=== PATIENT | male | born 1955 | race Caucasian/White ===

== ENCOUNTER 2021-10-06 21:48 | Outpatient (CLI) | payer MEDICARE, OTHER | END 2021-10-06 21:49 | disposition EMS.NT | LOC: EMS 21:48 | DX: R11.2 Nausea with vomiting, unspecified (principal); R10.9 Unspecified abdominal pain; R14.0 Abdominal distension (gaseous) ==

== ENCOUNTER 2021-10-06 22:59 | Emergency (ER) | payer MEDICARE, OTHER ==
[2021-10-06] MEDS ORDERED: PROMETHAZINE INJ 25 MG in SODIUM CHLORIDE 0.9% 50 ML IV STA (23:07)
[2021-10-06] MEDS ORDERED: SODIUM CHLORIDE 0.9% 1,000 ML IV STA (23:07)
--- NOTE | 2021-10-06 23:10 | ED Physician Documentation ---
PD HPI NVD - Stated complaint Stated Complaint: SOA, ABD CRAMPS, NAUSEA - Chief complaint Chief Complaint: Resp - History obtained from History obtained from: Patient - History of Present Illness Timing - onset: How many hours ago (6) Timing - duration: Hours (6) Timing - details: Abrupt onset Pain level max: 6 Pain level now: 5 Associated symptoms: Abdominal pain. No: Fever, Chest pain, Hematemesis, Melena, Hematochezia, Dizzy, Near syncope / syncope, Loss of appetite Contributing factors: No: Sick contact, Recent antibiotics, Alcohol use, Anticoagulated, Diabetes - Additonal information Additional information: Patient is a 66-year-old male he states that he was eating Oreos earlier today when he began to develop abdominal cramping and pain. He states he has had nausea and vomiting since that time. The abdominal pain is diffuse. Nothing makes it better or worse. EMS came and evaluated the patient. The patient elected to have his drive him to the hospital. No recent antibiotics. No alcohol use. Not anticoagulated. No diabetes. Nothing makes it better or worse. Has not had similar symptoms previously. No chest pain. He states that he feels short of air when vomiting. Review of Systems Ten Systems: 10 systems reviewed and negative Constitutional: denies: Fever, Chills Throat: denies: Sore throat Cardiac: denies: Chest pain / pressure, Palpitations Respiratory: denies: Cough, Wheezing GI: reports: Abdominal Pain (Diffuse, crampy), Nausea, Vomiting. denies: Diarrhea, Hematemesis, Bloody / black stool Skin: denies: Rash Musculoskeletal: denies: Neck pain, Back pain Neurologic: denies: Headache PD PAST MEDICAL HISTORY - Past Medical History Past Medical History: Yes HEENT: Glaucoma - Present Medications Home Medications: Ambulatory Orders Medication Instructions Recorded Confirmed Timolol Maleate/Latanoprost/Pf 1 drops EACHEYE DAILY 10/06/21 10/06/21 [Timolol 0.5%-Latanopros 0.005%] Ondansetron Odt [Zofran] 4 mg TL Q6H PRN #10 tablet 10/07/21 Promethazine [Phenergan] 25 mg PO Q6H PRN #10 tablet 10/07/21 - Allergies Allergies/Adverse Reactions: Allergies Allergy/AdvReac Type Severity Reaction Status Date / Time No Known Drug Allergies Allergy Verified 10/06/21 23:13 - Living Situation Living Situation: reports: With family Living Arrangement: reports: At home - Social History Does the pt smoke?: No Does the pt drink ETOH?: No Does the pt have substance abuse?: No - Family History Family history: reports: Non contributory PD ED PE NORMAL - Vitals Vital signs reviewed: Yes - General General: Alert and oriented X 3, No acute distress, Well developed/nourished - HEENT HEENT: PERRL, Moist mucous membranes, Pharynx benign - Neck Neck: Supple, no meningeal sign - Cardiac Cardiac: RRR, Strong equal pulses - Respiratory Respiratory: No respiratory distress, Clear bilaterally - Abdomen Abdomen: Soft, Non tender, Non distended - Derm Derm: Warm and dry, No rash - Extremities Extremities: No edema, No calf tenderness / cord - Neuro Neuro: Alert and oriented X 3 - Psych Psych: Normal mood, Normal affect Results - Vitals Vitals: Vital Signs - 24 hr 10/06/21 10/06/21 23:08 23:42 Temperature 36.4 C L Heart Rate 88 72 Respiratory 17 20 Rate Blood Pressure 156/90 H 116/77 O2 Saturation 98 94 Oxygen O2 Source Room air - Labs Labs: Laboratory Tests 10/06/21 10/06/21 23:10 23:10 WBC 15.9 H RBC 4.78 Hgb 15.1 Hct 42.8 MCV 89.5 MCH 31.6 H MCHC 35.3 RDW 12.5 Plt Count 323 MPV 9.7 Neut # (Auto) 12.9 H Lymph # (Auto) 1.9 Hall # (Auto) 0.8 Eos # (Auto) 0.2 Baso # (Auto) 0.1 Absolute Nucleated RBC 0.00 Nucleated RBC % 0.0 Sodium 134 L Potassium 4.4 Chloride 99 L Carbon Dioxide 23 Anion Gap 12.0 BUN 18 Creatinine 1.0 Estimated GFR (MDRD) 75 L Glucose 177 H Calcium 9.4 Total Bilirubin 0.9 AST 21 ALT 22 Alkaline Phosphatase 58 Total Protein 8.1 Albumin 4.5 Globulin 3.6 Albumin/Globulin Ratio 1.3 Lipase 33 - Rads (name of study) CT abdomen pelvis Radiology: Final report received, EMP read contemporaneously, See rad report PD MEDICAL DECISION MAKING - ED course Complexity details: reviewed results, re-evaluated patient, considered differential, d/w patient ED course: Patient did not improve much with Phenergan and Zofran but did improve significantly with droperidol. CT scan performed and does not show any acute abnormalities. Abdomen is soft, nontender nondistended on serial exam. Feels much better and requesting to go home at this time. We will send the patient home with Zofran and prescribe antiemetics for home. Likely a viral gastroenteritis. Patient counseled regarding signs and symptoms for which I believe and urgent re-evaluation would be necessary. Patient with good understanding of and agreement to plan and is comfortable going home at this time This document was made in part using voice recognition software. While efforts are made to proofread this document, sound alike and grammatical errors may occur. IMPRESSION: 1. No acute abdominal or pelvic abnormality. 2. Diverticulosis without evidence of diverticulitis. 3. Cholelithiasis without evidence of acute cholecystitis. Departure - Departure Disposition: Home, Self Care Clinical Impression: Vomiting Qualifiers: Vomiting type: unspecified Nausea presence: with nausea Qualified Code(s): R11.2 - Nausea with vomiting, unspecified Condition: Good Instructions: ED Nausea Vomiting Follow-Up: JAMIE SOSA DO [Primary Care Provider] - As Needed Prescriptions: Promethazine [Phenergan] 25 mg PO Q6H PRN #10 tablet PRN Reason: Nausea / Vomiting Ondansetron Odt [Zofran] 4 mg TL Q6H PRN #10 tablet PRN Reason: Nausea / Vomiting Comments: Your prescriptions were sent to [facility]. Go home and rest tonight. Usually the vomiting will resolve within 6 to 12 hours. Drink plenty of fluids. Return if you worsen. You may develop diarrhea after the vomiting, this could last for 3 to [address] scan of your abdomen pelvis does not show any acute abnormalities.
[2021-10-06 23:17] LABS: BASOPHILS # (AUTO) 0.1 10^3/uL (0.0-0.1); BASOPHILS % (AUTO) 0.4 %; EOSINOPHILS # (AUTO) 0.2 10^3/uL (0.0-0.7); HCT - HEMATOCRIT 42.8 % (42.0-52.0); HGB - HEMOGLOBIN 15.1 g/dL (14.0-18.0); LYMPHOCYTES # (AUTO) 1.9 10^3/uL (1.5-3.5); LYMPHOCYTES % (AUTO) 11.7 %; MEAN CORPUSCULAR HEMOGLOBIN 31.6 pg (27.0-31.0); MEAN CORPUSCULAR HGB CONC 35.3 g/dL (32.0-36.0); MEAN CORPUSCULAR VOLUME 89.5 fL (80.0-94.0); MEAN PLATELET VOLUME 9.7 fL (7.4-11.4); MONOCYTES # (AUTO) 0.8 10^3/uL (0.0-1.0); MONOCYTES % (AUTO) 5.2 %; NEUTROPHILS # (AUTO) 12.9 10^3/uL (1.5-6.6); NEUTROPHILS % (AUTO) 81.4 %; PLT - PLATELET COUNT 323 10^3/uL (130-450); RED BLOOD COUNT 4.78 10^6/uL (4.70-6.10); RED CELL DISTRIBUTION WIDTH 12.5 % (12.0-15.0); WHITE BLOOD COUNT 15.9 x10^3/uL (4.8-10.8)
[2021-10-06] MEDS ORDERED: PROMETHAZINE 25 MG/1 ML VIAL ONE (23:22)
[2021-10-06 23:30] LABS: ALBUMIN 4.5 g/dL (3.2-5.5); ALBUMIN/GLOBULIN RATIO 1.3 (1.0-2.2); BILIRUBIN,TOTAL 0.9 mg/dL (0.2-1.0); CALCIUM 9.4 mg/dL (8.5-10.3); POTASSIUM 4.4 mmol/L (3.5-5.0); TOTAL PROTEIN 8.1 g/dL (6.7-8.2)
[2021-10-06] MEDS ORDERED: MORPHINE 2 MG/ML CARPUJECT IVP STA (23:39)
[2021-10-06] MEDS ORDERED: ONDANSETRON 4 MG/2 ML VIAL IVP STA (23:40)
[2021-10-06] MEDS ORDERED: IOVERSOL 320 100 ML VIAL IVP ONE (23:55)
[2021-10-07] MEDS ORDERED: DROPERIDOL 5 MG/2 ML VIAL IVP STA (00:11)
[2021-10-07] MEDS ORDERED: IOVERSOL 320 100 ML VIAL IVP ONE (00:14)
--- NOTE | 2021-10-07 00:23 | CT Report ---
PROCEDURE: Abdomen/Pelvis W INDICATIONS: diffuse abd pain, vomiting TECHNIQUE: After the administration of contrast, 5 mm thick sections acquired from the diaphragms to the sym physis. 5 mm thick coronal and sagittal reformats were acquired. For radiation dose reduction, the following was used: automated exposure control, adjustment of mA and/or kV according to patient size . COMPARISON: None. FINDINGS: Image quality: Excellent. ABDOMEN: Lung bases: Lung bases are clear. Heart size is normal. Solid organs: Liver and spleen are normal in size and enhancement. Gallbladder the gallbladder is d istended, however there is no wall thickening or pericholecystic fluid. Dependent hyperdensities are consistent with gallstones. Biliary system is non dilated. Pancreas enhances normally. No adrenal nodules. Kidneys demonstrate normal size and enhancement, without hydronephrosis. Peritoneum and bowel: Bowel loops demonstrate normal wall thickness and caliber. No free fluid or a ir. There is diverticulosis without evidence of diverticulitis. Nodes and vessels: No retroperitoneal or mesenteric adenopathy by size criteria. Aorta and inferior vena cava are normal in size. Miscellaneous: No ventral hernias. PELVIS: Genitourinary: Bladder wall thickness is normal. Miscellaneous: No inguinal hernias or adenopathy. Bones: No suspicious bony lesions. No vertebral body compression fractures. Degenerative disc dise ase at L5-S1. IMPRESSION: 1. No acute abdominal or pelvic abnormality. 2. Diverticulosis without evidence of diverticulitis. 3. Cholelithiasis without evidence of acute cholecystitis. Reviewed by: Clint Nugent on 10/07/2021 12:22 AM [facility] Approved by: Clint Nugent on 10/07/2021 12:22 AM [facility] Station ID: [id number]
[2021-10-07] MEDS ORDERED: ONDANSETRON ODT 4 MG Prepack 2 TL PRN (00:56)
[2021-10-07 01:08] VITALS: BP 156/75
== END 2021-10-07 01:08 | disposition home or self-care (01) ==
LOC: ED 22:59
DX: R11.2 Nausea with vomiting, unspecified (principal)
CPT/HCPCS: 36415; 74177; 80053; 83690; 85025; 96365; 96375; 99284; J7040; Q9967

== ENCOUNTER 2021-11-15 08:00 | Outpatient (CLI) | payer OTHER, MEDICARE ==
[2021-11-15 18:08] LABS: BASOPHILS % (AUTO) 0.2 %; EOSINOPHILS % (AUTO) 0.2 %; HCT - HEMATOCRIT 41.9 % (42.0-52.0); HGB - HEMOGLOBIN 14.4 g/dL (14.0-18.0); LYMPHOCYTES # (AUTO) 0.9 10^3/uL (1.5-3.5); MEAN CORPUSCULAR HEMOGLOBIN 30.9 pg (27.0-31.0); MEAN CORPUSCULAR HGB CONC 34.4 g/dL (32.0-36.0); MEAN CORPUSCULAR VOLUME 89.9 fL (80.0-94.0); MEAN PLATELET VOLUME 10.1 fL (7.4-11.4); MONOCYTES # (AUTO) 0.8 10^3/uL (0.0-1.0); NEUTROPHILS # (AUTO) 6.8 10^3/uL (1.5-6.6); NEUTROPHILS % (AUTO) 80.1 %; PLT - PLATELET COUNT 248 10^3/uL (130-450); RED BLOOD COUNT 4.66 10^6/uL (4.70-6.10); RED CELL DISTRIBUTION WIDTH 13.6 % (12.0-15.0); WHITE BLOOD COUNT 8.5 x10^3/uL (4.8-10.8)
[2021-11-15 18:21] LABS: ALBUMIN 3.8 g/dL (3.2-5.5); ALBUMIN/GLOBULIN RATIO 0.9 (1.0-2.2); BILIRUBIN,TOTAL 2.7 mg/dL (0.2-1.0); CALCIUM 9.2 mg/dL (8.5-10.3); CREATININE 0.8 mg/dL (0.6-1.2); POTASSIUM 3.6 mmol/L (3.5-5.0); TOTAL PROTEIN 7.9 g/dL (6.7-8.2)
== END 2021-11-15 23:59 ==
LOC: LAB.N 08:00
PROVIDERS: ATTEND Nurse Practitioner
DX: R11.10 Vomiting, unspecified (principal)
CPT/HCPCS: 36415; 80053; 82150; 83690; 85025

== ENCOUNTER 2022-01-09 11:46 | Day surgery (SDC) | payer OTHER, MEDICARE ==
[~2022-01-09 11:46] MED LIST: BUPIVACAINE 0.25% PF 10 ML VIAL ONE
[2022-01-09] MEDS ORDERED: LACTATED RINGERS 1,000 ML IV ONE ×3 (12:36→16:38)
--- NOTE | 2022-01-09 13:03 | ANESTHESIA ---
Pre-Anesthesia VS, & Labs - Diagnosis chronic cholecystitis - Procedure laparoscopic cholecystectomy Vital Signs: Temp Pulse Resp BP Pulse Ox 37.1 C 55 L 12 122/74 98 01/09/22 12:10 01/09/22 12:10 01/09/22 12:10 01/09/22 12:10 01/09/22 12:10 Height: 6 ft 1 in Weight (kg): 95 kg Body Mass Index: 27.6 BMI Classification: Overweight - NPO >8 hours - Lab Results Lab results reviewed: Yes Home Medications and Allergies Home Medications: Ambulatory Orders Ascorbic Acid [Vitamin C] 1,000 mg PO DAILY 01/04/22 Cholecalciferol [Vitamin D3] 25 mcg PO DAILY 01/04/22 Latanoprost/Pf [Latanoprost 0.005% Eye Drop] 1 drops OP DAILY 01/04/22 Timolol 0.5% Ophth Drops [Timoptic 0.5% Ophth Drops] 1 drops OPTH BID 01/04/22 Vitamin B Complex 1 each PO DAILY 01/04/22 predniSONE [Deltasone] 5 mg PO DAILY 01/04/22 Ascorbic Acid [Vitamin C] 1,000 mg PO DAILY 01/04/22 Cholecalciferol [Vitamin D3] 25 mcg PO DAILY 01/04/22 Latanoprost/Pf [Latanoprost 0.005% Eye Drop] 1 drops OP DAILY 01/04/22 Timolol 0.5% Ophth Drops [Timoptic 0.5% Ophth Drops] 1 drops OPTH BID 01/04/22 Vitamin B Complex 1 each PO DAILY 01/04/22 predniSONE [Deltasone] 5 mg PO DAILY 01/04/22 Allergies/Adverse Reactions: Allergies Allergy/AdvReac Type Severity Reaction Status Date / Time No Known Drug Allergies Allergy Verified 10/06/21 23:13 Anes History & Medical History - Anesthetic History Anesthesia Complications: reports: No previous complications Family history of Anesthesia Complications: Denies Family history of Malignant Hyperthermia: Denies - Medical History Cardiovascular: reports: None Pulmonary: reports: Sleep apnea, CPAP use Gastrointestinal: reports: GERD, Ulcers Urinary: reports: None Musculoskeletal: reports: Rheumatoid arthritis Skin: reports: Eczema, Rosacea, Other Smoking Status: Never smoker - Surgical History General: reports: Colonoscopy, Other Exam General: Alert, Oriented x3, Cooperative, No acute distress Dental: WNL Mouth Openin Fingerbreadth Neck Mobility: Normal Mallampati classification: II Plan Anesthesia Type: General Consent for Procedure(s) Verified and Reviewed: Yes Code Status: Attempt Resuscitation ASA classification: 2-Mild systemic disease Is this case an emergency?: No
[2022-01-09] MEDS ORDERED: ONDANSETRON 4 MG/2 ML VIAL ONE (13:09)
[2022-01-09] MEDS ORDERED: KETOROLAC 30 MG/ML VIAL ONE (13:09)
[2022-01-09] MEDS ORDERED: fentaNYL 100 MCG/2 ML VIAL ONE (13:09)
[2022-01-09] MEDS ORDERED: ACETAMINOPHEN 1,000 MG/100 ML 100 ML IV ONE (13:09)
[2022-01-09] MEDS ORDERED: PROPOFOL 200 MG/20 ML VIAL IVP ONE (13:09)
[2022-01-09] MEDS ORDERED: LIDOCAINE-MPF 2% 5 ML VIAL ONE (13:09)
[2022-01-09] MEDS ORDERED: DEXAMETHASONE 4 MG/ML VIAL ONE (13:09)
[2022-01-09] MEDS ORDERED: BUPIVACAINE 0.25% PF 10 ML VIAL SUBQ ONE ×2 (13:58→16:02)
[2022-01-09] MEDS ORDERED: SUGAMMADEX 200 MG/2 ML VIAL IVP ONE (14:09)
[2022-01-09] MEDS ORDERED: ROCURONIUM 50 MG/5 ML VIAL ONE (14:13)
[2022-01-09] MEDS ORDERED: HYDROmorphone 0.5 MG/0.5 ML SYRINGE IVP PRN ×2 (16:24)
[2022-01-09] MEDS ORDERED: NALOXONE 0.4 MG/ML VIAL IVP PRN (16:24)
[2022-01-09] MEDS ORDERED: ATROPINE ABBOJECT 1 MG/10 ML SYRINGE IVP PRN (16:24)
[2022-01-09] MEDS ORDERED: fentaNYL 100 MCG/2 ML VIAL IVP PRN (16:24)
[2022-01-09] MEDS ORDERED: MORPHINE 2 MG/ML CARPUJECT IVP PRN (16:24)
[2022-01-09] MEDS ORDERED: ePHEDrine 50 MG/ML VIAL IVP PRN (16:24)
[2022-01-09] MEDS ORDERED: METOCLOPRAMIDE 10 MG/2 ML VIAL IVP PRN (16:24)
[2022-01-09] MEDS ORDERED: ONDANSETRON 4 MG/2 ML VIAL IVP PRN ×2 (16:24)
[2022-01-09] MEDS ORDERED: HYDROmorphone 0.5 MG/0.5 ML SYRINGE ONE (16:35)
[2022-01-09] MEDS ORDERED: KETOROLAC 15 MG/ML VIAL IVP PRN (16:39)
[2022-01-09] MEDS ORDERED: HYDROmorphone 1 MG/ML CARPUJECT ONE (16:45)
[2022-01-09] MEDS ORDERED: KETOROLAC 15 MG/ML VIAL ONE (16:45)
--- NOTE | 2022-01-09 16:53 | ANESTHESIA POST OP EVALUATION ---
Anesthesia Post Eval - Post Anesthesia Eval Vitals: Last Vital Signs Temp 36.8 C 01/09/22 16:37 Pulse 70 01/09/22 16:47 Resp 12 01/09/22 16:47 BP 145/94 H 01/09/22 16:47 Pulse Ox 95 01/09/22 16:47 CV Function Including HR & BP: Stable Pain Control: Satisfactory Nausea & Vomiting: Negative Mental Status: Baseline Respiratory Status: Airway Patent Hydration Status: Satisfactory Anesthesia Complications: None
[2022-01-09] MEDS ORDERED: LACTATED RINGERS 1,000 ML IV SCH (17:00)
[2022-01-09] MEDS: HYDROcod/ACETAM 5/325 MG TABLET PO PRN (20:03)
[2022-01-10] MEDS: HYDROcod/ACETAM 5/325 MG TABLET PO PRN ×3 (00:04→09:53)
[2022-01-10 07:18] VITALS: BP 105/53
--- NOTE | 2022-01-10 09:06 | PHARMACY PROGRESS NOTE ---
- Best Possible Medication History Admit Date and Time: Processed by: Nursing Medication History completed: Yes Patient Interview: Completed As the person ultimately responsible for medication therapy, providers are able to order a medication from an existing home medication list in [facility] via the "Reconcile Routine" prior to Confirmation of that medication by client support administrator. Such practice is discouraged except when the physician, in their clinical judgment, deems that a medical need exists for a medication without regard to previous use.
--- NOTE | 2022-01-10 10:27 | OPERATIVE REPORT ---
Operative Report - General Procedure Date: 01/09/22 Planned Procedure: lap suma Pre-Op Diagnosis: chronic cholecystitis and hx choledocholithiasis Procedure Performed: lap suma extra degree difficulty Post Op Diagnosis: chronic cholecystitis - Procedure Note Anesthesia Technique: General ET tube, Local Pathology: gallbladder Estimated Blood Loss (mL): 100 Drain/Tube Type: Dale Rocha drain, Other Indications: as above Findings: contracted gallbladder adherent to common bile duct and hepatic artery purulent fluid within the gallbladder Complications: none - Other Other Information/Narrative: The gallbladder was encased in omentum. The patient was properly identified, brought to the operating room and placed in supine position. Sequential compression devices were placed. General endotracheal anesthesia was induced. The patient was prepped and draped in a sterile fashion and given preoperative antibiotics. Local anesthetic was given to incision areas. An incision was made in the periumbilical area. Dissection proceeded down to fascia. The fascia was incised lifted upwards and abdomen entered with a Veress needle. CO2 was insufflated to a pressure of 15. An 11 mm trocar followed by a 30 degree scope was placed. There was no evidence of injury from Veress needle or trocar placement. Under direct vision 2 5 mm trochars were placed in the right upper quadrant and an 11 mm trocar was placed in the epigastrium. The gallbladder was encased in omentum. On peeling the omentum off of the gallbladder the gallbladder ruptured. The body of the gallbladder was retracted anterior. The gallbladder was contracted and adherent to the common bile duct as well as hepatic artery. 1 and half hours was taken to carefully separate the gallbladder from the common bile duct and hepatic artery. There is no apparent injury. The cystic duct and cystic artery were both divided close to the gallbladder. He had significant thickening all tissue that duct was tied with a 2-0 silk and then clipped. Artery was clipped. The gallbladder and 2 more times slightly proximal. They are sharply divided. Lateral attachments were partially taken down further mobilizing the gallbladder more anterior and away from the duodenum. The infundibulum of the gallbladder was then retracted right lateral and caudad. With minimal use of cautery a large bare cystic plate area or window was carefully created. The cystic duct was inspected from right lateral and left lateral positions. The gallbladder was mobilized off from the bed of the liver with hook cautery. The gallbladder was placed in Endo Catch bag and brought out through the epigastric trocar site. Hemostasis was assured. Surgicel was placed at the liver bed area. #10 flat Dale-Rocha drain was placed and brought out through the right lateral trocar site. Secured with a 3- 0 nylon. Trochars were removed under direct vision. Fascia at the larger trocar sites was closed with [id number] are running 0 Vicryl suture. Subcutaneous tissue was irrigated and skin closed with interrupted 4-0 Monocryl. Dressings were applied. Patient tolerated the procedure well was awakened and brought to recovery in good condition.
== END 2022-01-10 10:40 | disposition home or self-care (01) ==
LOC: SDS 11:46 → MS2 16:50 → SDS 01-10 10:40
PROVIDERS: ATTEND Surgery
PROC: 0FT44ZZ Resection of Gallbladder, Percutaneous Endoscopic Approach (ICD-10-PCS; principal; 2022-01-09 13:15)
DX: K80.12 Calculus of gallbladder with acute and chronic cholecystitis without obstruction (principal); G47.33 Obstructive sleep apnea (adult) (pediatric); K21.9 Gastro-esophageal reflux disease without esophagitis
CPT/HCPCS: 47562; A9270; J0131; J1170; J7120

== ENCOUNTER 2022-02-05 19:57 | Inpatient (IN) | payer OTHER, MEDICARE ==
[2022-02-05] MEDS ORDERED: ONDANSETRON 4 MG/2 ML VIAL IVP STA (20:14)
[2022-02-05] MEDS ORDERED: SODIUM CHLORIDE 0.9% 1,000 ML IV STA (20:14)
--- NOTE | 2022-02-05 20:15 | ED Physician Documentation ---
PD HPI ABD PAIN - Stated complaint Stated Complaint: ABD PX - Chief complaint Chief Complaint: Abd Pain - History obtained from History obtained from: Patient - Additional information Additional information: 66-year-old gentleman with history of polymyalgia rheumatica currently on 5 mg of prednisone a day, otherwise fairly healthy. He started having trouble with gallstones a few months ago and subsequently developed choledocholithiasis. He had a ERCP with biliary stenting done in [place] and still has a stent in place but had a laparoscopic cholecystectomy about 4 weeks ago. About 2 days a go started develop sweats and chills as well as nausea and since then has developed progressive diffuse abdominal pain and vomiting. Bowel movements have been reportedly normal including a bowel movement this morning but he notes no flatus since this morning. His vomiting is terrible. Pain is not too bad though. He denies fevers or chills. Review of Systems Ten Systems: 10 systems reviewed and negative Constitutional: denies: Fever, Chills Nose: reports: Reviewed and negative Respiratory: denies: Dyspnea, Cough GI: reports: Abdominal Pain, Nausea, Vomiting. denies: Diarrhea PD PAST MEDICAL HISTORY - Past Medical History Cardiovascular: None Respiratory: Sleep apnea, CPAP use GI: GERD, Ulcers : None HEENT: Chronic vision loss, Glaucoma, Chronic hearing loss Psych: None Musculoskeletal: Rheumatoid arthritis Derm: Eczema, Rosacea, Other - Past Surgical History Past Surgical History: Yes General: Colonoscopy, Other - Present Medications Home Medications: Ambulatory Orders Medication Instructions Recorded Confirmed Ascorbic Acid [Vitamin C] 1,000 mg PO DAILY 01/04/22 01/04/22 Cholecalciferol [Vitamin D3] 25 mcg PO DAILY 01/04/22 01/04/22 Latanoprost/Pf [Latanoprost 0.005% 1 drops OP DAILY 01/04/22 01/09/22 Eye Drop] Timolol 0.5% Ophth Drops [Timoptic 1 drops OPTH BID 01/04/22 01/09/22 0.5% Ophth Drops] Vitamin B Complex 1 each PO DAILY 01/04/22 01/04/22 predniSONE [Deltasone] 5 mg PO DAILY 01/04/22 01/09/22 HYDROcod/ACETAM 5/325 [Line [place] 5/325] 1 each PO Q6H PRN #30 tablet 01/09/22 Ketorolac Inj (15Mg) [Toradol Inj 15 mg IVP ONCE #1 ml 01/09/22 (15Mg)] Ondansetron Odt [Zofran Odt] 4 mg PO Q6H PRN #15 tablet 01/09/22 - Allergies Allergies/Adverse Reactions: Allergies Allergy/AdvReac Type Severity Reaction Status Date / Time No Known Drug Allergies Allergy Verified 02/05/22 20:06 - Social History Does the pt smoke?: No Smoking Status: Never smoker Does the pt drink ETOH?: No Does the pt have substance abuse?: No - Immunizations Immunizations are current?: Yes - POLST Patient has POLST: No PD ED PE NORMAL - Vitals Vital signs reviewed: Yes - General General: Alert and oriented X 3, No acute distress - HEENT HEENT: PERRL, EOMI - Neck Neck: Supple, no meningeal sign, No bony TTP - Cardiac Cardiac: RRR, No murmur - Respiratory Respiratory: No respiratory distress, Clear bilaterally - Abdomen Abdomen: Other (Bowel tones are absent. He has mild diffuse tenderness especially in the epigastrium and right upper quadrant.) - Back Back: No CVA TTP, No spinal TTP - Derm Derm: Normal color, Warm and dry - Neuro Neuro: Alert and oriented X 3, Normal speech Results - Vitals Vitals: Vital Signs - 24 hr 02/05/22 20:00 Temperature 36.3 C L Heart Rate 76 Respiratory 18 Rate Blood Pressure 145/78 H O2 Saturation 98 Oxygen O2 Source Room air - Labs Labs: Laboratory Tests 02/05/22 02/05/22 20:22 20:22 WBC 13.2 H RBC 4.69 L Hgb 14.6 Hct 43.0 MCV 91.7 MCH 31.1 H MCHC 34.0 RDW 12.9 Plt Count 283 MPV 9.5 Neut # (Auto) 11.2 H Lymph # (Auto) 1.0 L [place] # (Auto) 0.9 Eos # (Auto) 0.0 Baso # (Auto) 0.0 Absolute Nucleated RBC 0.00 Nucleated RBC % 0.0 Sodium 139 Potassium 4.2 Chloride 97 L Carbon Dioxide 28 Anion Gap 14.0 H BUN 18 Creatinine 1.1 Estimated GFR (MDRD) 67 L Glucose 134 H Calcium 9.8 Total Bilirubin 1.6 H AST 15 ALT 20 Alkaline Phosphatase 62 Total Protein 8.7 H Albumin 4.1 Globulin 4.6 H Albumin/Globulin Ratio 0.9 L Lipase 28 PD MEDICAL DECISION MAKING - ED course ED course: 66-year-old gentleman who is about 4 weeks out from laparoscopic cholecystectomy with a ERCP biliary stent in place. He presents with 2 days of generalized symptoms with worsening abdominal pain although declines pain medication and prominent vomiting. On examination he does have some tenderness in the right upper quadrant and diffusely. Work-up here demonstrates a elevated white cell count at 13,200, elevated bilirubin at 1.6, otherwise fairly unremarkable labs. CT imaging done without contrast due to significant and severe contrast shortage in this [place] demonstrates a loculated fluid collection in the gallbladder fossa concerning for abscess. Ultrasound also ordered and formal read pending at shift change. He was feeling better after Reglan, noting he did not have a much of response to Zofran. Given the above findings he will need further evaluation and treatment including surgical consultation, potential IR guided drainage of the fluid collection. Every hospital in [facility], including ours, is currently at capacity. We do expect discharges tomorrow. There is no general surgeon currently on- call. Plan at shift change is to obtain blood cultures and start scheduled Zosyn pending surgical consultation and perhaps IR guided drainage tomorrow. Patient agreeable and amenable with plan. Departure - Departure Clinical Impression: Intra-abdominal abscess Condition: Stable
[2022-02-05 20:31] LABS: BASOPHILS % (AUTO) 0.2 %; EOSINOPHILS % (AUTO) 0.1 %; HGB - HEMOGLOBIN 14.6 g/dL (14.0-18.0); LYMPHOCYTES % (AUTO) 7.5 %; MEAN CORPUSCULAR HEMOGLOBIN 31.1 pg (27.0-31.0); MEAN CORPUSCULAR VOLUME 91.7 fL (80.0-94.0); MEAN PLATELET VOLUME 9.5 fL (7.4-11.4); MONOCYTES # (AUTO) 0.9 10^3/uL (0.0-1.0); MONOCYTES % (AUTO) 6.8 %; NEUTROPHILS # (AUTO) 11.2 10^3/uL (1.5-6.6); PLT - PLATELET COUNT 283 10^3/uL (130-450); RED BLOOD COUNT 4.69 10^6/uL (4.70-6.10); RED CELL DISTRIBUTION WIDTH 12.9 % (12.0-15.0); WHITE BLOOD COUNT 13.2 x10^3/uL (4.8-10.8)
[2022-02-05 20:45] LABS: ALBUMIN 4.1 g/dL (3.2-5.5); ALBUMIN/GLOBULIN RATIO 0.9 (1.0-2.2); BILIRUBIN,TOTAL 1.6 mg/dL (0.2-1.0); CALCIUM 9.8 mg/dL (8.5-10.3); CREATININE 1.1 mg/dL (0.6-1.2); POTASSIUM 4.2 mmol/L (3.5-5.0); TOTAL PROTEIN 8.7 g/dL (6.7-8.2)
[2022-02-05] MEDS ORDERED: METOCLOPRAMIDE 10 MG/2 ML VIAL IVP STA (21:29)
--- NOTE | 2022-02-05 21:45 | CT Report ---
PROCEDURE: Abdomen/Pelvis WO INDICATIONS: abd pain TECHNIQUE: Noncontrast 5 mm thick sections acquired from the diaphragms to the symphysis. 5 mm coronal and sagi ttal reformats were then performed. For radiation dose reduction, the following was used: automated exposure control, adjustment of mA and/or kV according to patient size. COMPARISON: None. FINDINGS: Image quality: Excellent. Lung bases:There is minimal dependent atelectasis. Heart: Heart is normal in size. ABDOMEN: Liver:A few small foci of pneumobilia are demonstrated within the liver. Gallbladder:The gallbladder is surgically absent. There is a loculated fluid collection in the gallb ladder fossa indistinct margins measuring approximately 4.6 x 2.9 cm. Evaluation is limited in the ab sence of intravenous contrast. There is adjacent subhepatic fat stranding. Biliary ducts:No definite biliary ductal dilatation. There is a biliary stent within the common bile duct extending into the duodenum. Pancreas: Unremarkable. Spleen: Normal in size. Adrenal Glands: No adrenal nodules. Kidneys and Ureters: No hydronephrosis or renal stones. Stomach and Bowel: Stomach, small bowel loops, and colon are normal in caliber and wall thickness. T he appendix is normal in appearance. There is colonic diverticulosis without acute diverticulitis. Peritoneum: No abnormal intraperitoneal fluid. No free air. Ventral Wall: No hernia. Abdominal Nodes: No retroperitoneal or mesenteric adenopathy by size criteria. Vessels: Aorta and inferior vena cava are normal in size. PELVIS: Pelvic Organs: Unremarkable. Bladder: Unremarkable. Pelvic Nodes: No enlarged lymph nodes. Miscellaneous: No inguinal hernias are seen. Bones: Visualized osseous structures demonstrate no suspicious focal lesions. IMPRESSION: 1. Loculated fluid collection within the gallbladder fossa suspicious for an abscess, with evaluation limited in the absence of intravenous contrast. The differential includes a postsurgical seroma/aidan dior or biloma. Reviewed by: Tim Kirk MD on 02/05/2022 9:43 PM PDT Approved by: Tim Kirk MD on 02/05/2022 9:43 PM PDT Station ID: [id number]
[2022-02-05] MEDS ORDERED: D5.45NS W/20 MEQ KCL 1,000 ML IV STA (22:04)
[2022-02-05] MEDS ORDERED: METOCLOPRAMIDE 10 MG/2 ML VIAL IVP PRN (22:05)
--- NOTE | 2022-02-05 22:29 | Ultrasound Report ---
PROCEDURE: Abdomen Limited INDICATIONS: upper abd pain, ?liver abscess TECHNIQUE: Real-time focused scanning was performed of the abdomen, with image documentation. COMPARISON: CT abdomen pelvis 02/05/2022, 10/07/2021 FINDINGS: The liver is increased in echogenicity. The gallbladder is surgically absent. Within the gallbladder fossa, there is a loculated fluid collec tion measuring approximately 6 x 4.1 x 4.6 cm. There are heterogeneous internal echoes. No internal v ascularity and color Doppler interrogation. No intra or extra hepatic biliary ductal dilatation. The visualized pancreas appears unremarkable sonographically. The right kidney measures 12.4 cm. No hydronephrosis. IMPRESSION: 1. Loculated heterogeneous fluid collection in the gallbladder fossa. Finding is suspicious for an ab scess but the differential also includes an evolving hematoma. The differential also includes a bilom a but this is considered less likely. 2. Increased hepatic echogenicity is nonspecific, no corresponding fatty infiltration was seen on the concurrent CT to suggest steatosis. Reviewed by: Tim Kirk MD on 02/05/2022 10:28 PM PDT Approved by: Tim Kirk MD on 02/05/2022 10:28 PM PDT Station ID: [id number]
[2022-02-05] MEDS: PIPERACILLIN/TAZOBACTAM 3.375 GM in SODIUM CHLORIDE 0.9% MINIBAG 100 ML IV SCH (22:30)
[2022-02-05 22:59] LABS: INR 1.4 (0.8-1.2); PT - PROTHROMBIN TIME 15.6 secs (9.9-12.6)
[2022-02-06 00:29] LABS: B. PARAPERTUSSIS- RESP PCR PAN NOT DETECTED; B. PERTUSSIS- RESP PCR PANEL NOT DETECTED; C. PNEUMONIAE- RESP PCR PANEL NOT DETECTED; CORONAVIRUS 229E-RESP PCR NOT DETECTED; CORONAVIRUS HKU1-RESP PCR NOT DETECTED; CORONAVIRUS NL63-RESP PCR NOT DETECTED; CORONAVIRUS OC43-RESP PCR NOT DETECTED; HUMAN METAPNEUMOVIRUS NOT DETECTED; INFLUENZA A- RESP PCR PANEL NOT DETECTED; INFLUENZA B - RESP PCR PANEL NOT DETECTED; M. PNEUMONIAE- RESP PCR PANEL NOT DETECTED; PARAINFLUENZA VIRUS 1 NOT DETECTED; PARAINFLUENZA VIRUS 2 NOT DETECTED; PARAINFLUENZA VIRUS 3 NOT DETECTED; PARAINFLUENZA VIRUS 4 NOT DETECTED; RHINOVIRUS/ENTEROVIRUS NOT DETECTED; RSV- RESP PCR PANEL NOT DETECTED; SARS-CoV-2 -RESP PCR PANEL NOT DETECTED
[2022-02-06] MEDS: PIPERACILLIN/TAZOBACTAM 3.375 GM in SODIUM CHLORIDE 0.9% MINIBAG 100 ML IV SCH ×3 (05:25→17:56)
[2022-02-06 06:28] LABS: BASOPHILS % (AUTO) 0.1 %; HCT - HEMATOCRIT 41.2 % (42.0-52.0); HGB - HEMOGLOBIN 13.6 g/dL (14.0-18.0); LYMPHOCYTES # (AUTO) 0.9 10^3/uL (1.5-3.5); LYMPHOCYTES % (AUTO) 7.8 %; MEAN CORPUSCULAR HEMOGLOBIN 31.1 pg (27.0-31.0); MEAN CORPUSCULAR VOLUME 94.1 fL (80.0-94.0); MONOCYTES # (AUTO) 0.8 10^3/uL (0.0-1.0); MONOCYTES % (AUTO) 7.3 %; NEUTROPHILS # (AUTO) 9.5 10^3/uL (1.5-6.6); NEUTROPHILS % (AUTO) 84.4 %; PLT - PLATELET COUNT 248 10^3/uL (130-450); RED BLOOD COUNT 4.38 10^6/uL (4.70-6.10); RED CELL DISTRIBUTION WIDTH 12.9 % (12.0-15.0); WHITE BLOOD COUNT 11.2 x10^3/uL (4.8-10.8)
[2022-02-06 06:54] LABS: ALBUMIN 3.6 g/dL (3.2-5.5); ALBUMIN/GLOBULIN RATIO 0.9 (1.0-2.2); CALCIUM 9.6 mg/dL (8.5-10.3); POTASSIUM 3.9 mmol/L (3.5-5.0); TOTAL PROTEIN 7.8 g/dL (6.7-8.2)
[2022-02-06] MEDS ORDERED: ONDANSETRON 4 MG/2 ML VIAL IVP PRN ×2 (07:49→09:19)
[2022-02-06] MEDS ORDERED: ACETAMINOPHEN 325 MG TABLET PO PRN (09:19)
[2022-02-06] MEDS ORDERED: SODIUM CHLORIDE FLUSH 0.9% 10 ML SYRINGE IVP PRN (09:19)
[2022-02-06] MEDS ORDERED: HYDROmorphone 1 MG/ML CARPUJECT IVP PRN (09:19)
--- NOTE | 2022-02-06 09:36 | HISTORY & PHYSICAL EXAMINATION ---
Chief Complaint - Chief Complaint Chief Complaint: Sweat and chills; intractable nausea and vomiting History of Present Illness - Admitted From Admitted From:: ED - History Obtained From Records Reviewed: Prior admissions History obtained from: Patient Exam Limitations: None - History of Present Illness HPI Comment/Other: Very pleasant 66-year-old gentleman who is well-known to our facility. He began having gallbladder problems in September. He was subsequently diagnosed with choledocholithiasis and was transferred to [facility] where he had an ERCP and stent placement. Following stent placement, he saw Dr. Mandujano in our clinic and had a cholecystectomy about a month ago. A drain was left at the time of the procedure due to transmural hemorrhagic necrotic cholecystitis. He is due to have his stent removed sometime in the next week or so. He presented to the emergency room last evening complaining of intractable nausea and vomiting associated with rigors. He tells me he vomited approximately every 30 minutes last evening before presenting to the emergency room. As part of his work-up in the emergency room he underwent a CT scan of the abdomen and pelvis which shows a small fluid collection in the gallbladder fossa. He has been afebrile since admission and responded well to Reglan with significant improvement in his nausea. History - Past Medical History Cardiovascular: reports: None Respiratory: reports: Sleep apnea, CPAP use GI: reports: GERD, Ulcers : reports: None HEENT: reports: Chronic vision loss, Glaucoma, Chronic hearing loss Psych: reports: None Musculoskeletal: reports: Rheumatoid arthritis Derm: reports: Eczema, Rosacea, Other MRSA Hx?: No - Past Surgical History General: reports: Colonoscopy, Other - Family & Social History Living Situation: With family - POLST Patient has POLST: No Meds/Allgy - Home Medications Home Medications: Ambulatory Orders Medication Instructions Recorded Confirmed Ascorbic Acid [Vitamin C] 1,000 mg PO DAILY 01/04/22 01/04/22 Cholecalciferol [Vitamin D3] 25 mcg PO DAILY 01/04/22 01/04/22 Latanoprost/Pf [Latanoprost 0.005% 1 drops OP DAILY 01/04/22 01/09/22 Eye Drop] Timolol 0.5% Ophth Drops [Timoptic 1 drops OPTH BID 01/04/22 01/09/22 0.5% Ophth Drops] Vitamin B Complex 1 each PO DAILY 01/04/22 01/04/22 predniSONE [Deltasone] 5 mg PO DAILY 01/04/22 01/09/22 HYDROcod/ACETAM 5/325 [[place] 5/325] 1 each PO Q6H PRN #30 tablet 01/09/22 Ketorolac Inj (15Mg) [Toradol Inj 15 mg IVP ONCE #1 ml 01/09/22 (15Mg)] Ondansetron Odt [Zofran Odt] 4 mg PO Q6H PRN #15 tablet 01/09/22 - Allergies Allergies/Adverse Reactions: Allergies Allergy/AdvReac Type Severity Reaction Status Date / Time No Known Drug Allergies Allergy Verified 02/05/22 20:06 Review of Systems - Constitutional Constitutional: reports: Fatigue, Chills, Malaise, Diaphoresis, Night sweats - Gastrointestinal Gastrointestinal: reports: Nausea, Vomiting Exam - Vital Signs Reviewed Vital Signs: Yes Vital Signs: Vital Signs x48h Pulse Resp BP Pulse Ox 02/06/22 06:00 62 18 129/68 96 02/06/22 04:36 64 18 130/75 97 - Physical Exam General Appearance: positive: No acute distress, Alert Eyes Bilateral: positive: Normal inspection, PERRL, EOMI ENT: positive: ENT inspection nml, Pharynx nml Neck: positive: Nml inspection Respiratory: positive: No respiratory distress, Breath sounds nml Cardiovascular: positive: Regular rate & rhythm, No murmur Peripheral Pulses: positive: 1+ Abdomen: positive: Nml bowel sounds, Tenderness (Minimal tenderness in RUQ). negative: Guarding, Rebound Skin: positive: Color nml Neurologic/Psychiatric: positive: Oriented x3 Conclusion/Plan - Problem List (1) Intra-abdominal abscess Conclusion/Plan: CT suspicious for abscess having presented with intractable nausea and vomiting and rigors. Without contrast we are not able to see clearly a distinctive collection and this is more consistent with phlegmon than it is with abscess. Fortunately he has responded to antibiotics overnight. His bilirubin is better and his white count is down. His nausea has also improved significantly. I discussed the case with Dr. Ulises Ceja, our radiologist today. He feels that this collection is not well organized enough or large enough to attempt drainage currently. If drainage becomes necessary, he feels it is something we could attempt at this facility. I will admit him for IV antibiotics and supportive care. Consider repeating the CT scan in 48 to 72 hours to evaluate progress. If his condition worsens, reconsider aspiration versus drain placement. - Lab Results Fish Bones: 02/06/22 06:11 02/06/22 06:11 - Diagnostic Imaging Results Diagnostic Imaging Results Comments: Loculated fluid collection within the gallbladder fossa suspicious for an abscess, with evaluation limited in the absence of intravenous contrast. The differential includes a postsurgical seroma/hematoma or biloma.
[2022-02-06] MEDS: SODIUM CHLORIDE 0.9% 1,000 ML IV SCH ×2 (12:02→20:42)
[2022-02-06] MEDS: METOCLOPRAMIDE 10 MG/2 ML VIAL IVP PRN ×2 (12:02→17:53)
[2022-02-06] MEDS: predniSONE 5 MG TABLET PO SCH (12:13)
[2022-02-06] MEDS: SODIUM CHLORIDE FLUSH 0.9% 10 ML SYRINGE IVP SCH (16:51)
[2022-02-06] MEDS: LATANOPROST 0.005% OPHTH DROPS EACHEYE SCH (20:41)
[2022-02-06] MEDS: TIMOLOL 0.5% OPHTH DROPS EACHEYE SCH (20:41)
[2022-02-07] MEDS: METOCLOPRAMIDE 10 MG/2 ML VIAL IVP PRN ×4 (00:30→17:54)
[2022-02-07] MEDS: PIPERACILLIN/TAZOBACTAM 3.375 GM in SODIUM CHLORIDE 0.9% MINIBAG 100 ML IV SCH ×4 (00:30→17:53)
[2022-02-07] MEDS: SODIUM CHLORIDE FLUSH 0.9% 10 ML SYRINGE IVP SCH ×3 (00:31→15:51)
[2022-02-07 05:09] LABS: BASOPHILS % (AUTO) 0.1 %; EOSINOPHILS % (AUTO) 0.1 %; HCT - HEMATOCRIT 36.1 % (42.0-52.0); HGB - HEMOGLOBIN 12.2 g/dL (14.0-18.0); LYMPHOCYTES # (AUTO) 1.4 10^3/uL (1.5-3.5); LYMPHOCYTES % (AUTO) 13.3 %; MEAN CORPUSCULAR HEMOGLOBIN 31.5 pg (27.0-31.0); MEAN CORPUSCULAR HGB CONC 33.8 g/dL (32.0-36.0); MEAN CORPUSCULAR VOLUME 93.3 fL (80.0-94.0); MEAN PLATELET VOLUME 9.7 fL (7.4-11.4); MONOCYTES % (AUTO) 9.7 %; NEUTROPHILS % (AUTO) 76.4 %; PLT - PLATELET COUNT 247 10^3/uL (130-450); RED BLOOD COUNT 3.87 10^6/uL (4.70-6.10); RED CELL DISTRIBUTION WIDTH 12.9 % (12.0-15.0); WHITE BLOOD COUNT 10.5 x10^3/uL (4.8-10.8)
[2022-02-07 05:25] LABS: ALBUMIN 3.1 g/dL (3.2-5.5); ALBUMIN/GLOBULIN RATIO 0.9 (1.0-2.2); BILIRUBIN,TOTAL 0.9 mg/dL (0.2-1.0); CALCIUM 9.1 mg/dL (8.5-10.3); CREATININE 0.9 mg/dL (0.6-1.2); POTASSIUM 3.7 mmol/L (3.5-5.0); TOTAL PROTEIN 6.6 g/dL (6.7-8.2)
[2022-02-07] MEDS: PANTOPRAZOLE 40 MG VIAL IVP SCH (06:37)
[2022-02-07] MEDS: SODIUM CHLORIDE 0.9% 1,000 ML IV SCH ×2 (06:41→15:51)
[2022-02-07] MEDS: TIMOLOL 0.5% OPHTH DROPS EACHEYE SCH ×2 (08:37→20:44)
[2022-02-07] MEDS: predniSONE 5 MG TABLET PO SCH (08:37)
[2022-02-07] MEDS: ENOXAPARIN 40 MG/0.4 ML SYRINGE SUBQ SCH (08:37)
--- NOTE | 2022-02-07 12:11 | PROVIDER PROGRESS NOTE ---
Subjective - General Admit Date: 02/06/22 Procedure Date: 01/09/22 Post Op Days: 29 Procedure Performed: Laparoscopic cholecystectomy - Review of Systems General: positive: Fatigue HEENT: positive: No symptoms Pulmonary: positive: No symptoms Cardiovascular: positive: No symptoms Gastrointestinal: positive: Nausea (Mild but much improved since admission) Genitourinary: positive: No symptoms Musculoskeletal: positive: No symptoms Skin: positive: No symptoms Psychiatric: positive: No symptoms - Other Other Information/Narrative: Mr. Kohler reports feeling much better today. He says his nausea has been under control since admission but he is worried about what it will be like at home without the nausea medication. He tolerated clear liquids this morning. He is going to try a regular diet for lunch. He denies any pain. Objective - Patient Data Reviewed Vital Signs: Yes Vital Signs: Vital Signs x48h Temp Pulse Resp BP Pulse Ox 02/07/22 07:52 36.7 C 51 L 18 130/75 100 Weight: Weight 02/05/22 02/06/22 02/07/22 23:59 23:59 23:59 Weight (kg) 92.624 kg 92.5 kg Intake & Output: Intake and Output Totals x24h 02/05/22 02/06/22 02/07/22 23:59 23:59 23:59 Intake Total 1100 2336.666 1298.333 Output Total 700 Balance 1100 2067.918 7193.333 - Lab Results Lab Results: 02/07/22 04:49 02/07/22 04:49 Other Lab Results: Lab Results x24hrs 02/07/22 02/07/22 Range/Units 04:49 04:49 WBC 10.5 (4.8-10.8) x10^3/uL RBC 3.87 L (4.70-6.10) 10^6/uL Hgb 12.2 L (14.0-18.0) g/dL Hct 36.1 L (42.0-52.0) % MCV 93.3 (80.0-94.0) fL MCH 31.5 H (27.0-31.0) pg MCHC 33.8 (32.0-36.0) g/dL RDW 12.9 (12.0-15.0) % Plt Count 247 (130-450) 10^3/uL MPV 9.7 (7.4-11.4) fL Neut # (Auto) 8.0 H (1.5-6.6) 10^3/uL Lymph # (Auto) 1.4 L (1.5-3.5) 10^3/uL Glenn # (Auto) 1.0 (0.0-1.0) 10^3/uL Eos # (Auto) 0.0 (0.0-0.7) 10^3/uL Baso # (Auto) 0.0 (0.0-0.1) 10^3/uL Absolute Nucleated RBC 0.00 x10^3/uL Nucleated RBC % 0.0 /100WBC Sodium 139 (135-145) mmol/L Potassium 3.7 (3.5-5.0) mmol/L Chloride 101 (101-111) mmol/L Carbon Dioxide 27 (21-32) mmol/L Anion Gap 11.0 (6-13) BUN 18 (6-20) mg/dL Creatinine 0.9 (0.6-1.2) mg/dL Estimated GFR (MDRD) 84 L (>89) Glucose 127 H (70-100) mg/dL Calcium 9.1 (8.5-10.3) mg/dL Total Bilirubin 0.9 (0.2-1.0) mg/dL AST 14 (10-42) IU/L ALT 18 (10-60) IU/L Alkaline Phosphatase 44 (42-121) IU/L Total Protein 6.6 L (6.7-8.2) g/dL Albumin 3.1 L (3.2-5.5) g/dL Globulin 3.5 (2.1-4.2) g/dL Albumin/Globulin Ratio 0.9 L (1.0-2.2) - Current Medications Current Medications: Current Medications Generic Name Dose Route Start Last Admin Trade Name Freq PRN Reason Stop Dose Admin Enoxaparin Sodium 40 mg 02/07/22 09:00 02/07/22 08:37 Enoxaparin 40 Mg/0.4 Ml Syringe SUBQ 40 mg DAILY CARLIE Administration Sodium Chloride 1,000 mls @ 100 mls/hr 02/06/22 10:00 02/07/22 06:41 Normal Saline 0.9% IV 100 mls/hr .Q10H CARLIE Administration Piperacillin Sod/Tazobactam 100 mls @ 200 mls/hr 02/06/22 12:00 02/07/22 11:32 Sod 3.375 gm/ Sodium Chloride IV 200 mls/hr Q6HR CARLIE Administration Latanoprost 1 drops 02/06/22 21:00 02/06/22 20:41 Latanoprost 0.005% Ophth Drops EACHEYE 1 drops QPM CARLIE Administration Metoclopramide HCl 5 mg 02/06/22 09:19 02/07/22 11:23 Metoclopramide 10 Mg/2 Ml Vial IVP 5 mg Q6H PRN Administration Nausea / Vomiting Pantoprazole Sodium 40 mg 02/07/22 07:00 02/07/22 06:37 Pantoprazole 40 Mg Vial IVP 40 mg QDAC CARLIE Administration Prednisone 5 mg 02/06/22 12:00 02/07/22 08:37 Prednisone 5 Mg Tablet PO 5 mg DAILYWM CARLIE Administration Sodium Chloride 10 ml 02/06/22 17:00 02/07/22 08:38 Sodium Chloride Flush 0.9% 10 Ml Syringe IVP 10 ml 0100,0900,1700 CARLIE Administration Sodium Chloride 10 ml 02/06/22 09:19 02/06/22 12:02 Sodium Chloride Flush 0.9% 10 Ml Syringe IVP 10 ml PRN PRN Administration NEEDED PER PROVIDER ORDERS Timolol Maleate 1 drops 02/06/22 21:00 02/07/22 08:37 Timolol 0.5% Ophth Drops EACHEYE 1 drops BID CARLIE Administration - Physical Exam Wound/Incisions: positive: Healing well General Appearance: positive: No acute distress Eyes Bilateral: positive: Normal inspection, PERRL, EOMI ENT: positive: ENT inspection nml Neck: positive: Nml inspection Respiratory: positive: Chest non-tender, No respiratory distress, Breath sounds nml Cardiovascular: positive: Regular rate & rhythm Abdomen: positive: Non-tender, Nml bowel sounds Skin: positive: Color nml Neurologic/Psychiatric: positive: Oriented x3 ABX Reporting Has patient been on IV antibiotics over the past 48 hours?: Yes Impression/Plan - Problem List Problem List: I spoke with Dr. Mandujano regarding the operation. The area in the liver contains a piece of Surgicel due to the blood loss during the operation. It has the expected appearance of Surgicel at this point in time. I think the most likely cause of the patient's symptoms is related to his stent. The stent has been in there for more than 2 months. He had an appointment yesterday regarding removal of the stent but he missed it. It was only a consultation it was not the actual procedure. After discussion with both Dr. Mandujano and the patient, we are going to continue antibiotics until his symptoms have essentially resolved. The patient will contact [facility] today to schedule stent removal. He will need to go home on po antibiotics as well and should continue until the stent is removed.
--- NOTE | 2022-02-07 16:33 | PHARMACY PROGRESS NOTE ---
- Best Possible Medication History Admit Date and Time: 02/06/22918 Processed by: Pharmacy Medication History completed: Yes Patient Interview: Completed Secondary Source(s): Insurance records As the person ultimately responsible for medication therapy, providers are able to order a medication from an existing home medication list in [facility] via the "Reconcile Routine" prior to Confirmation of that medication by clinical support associate. Such practice is discouraged except when the physician, in their clinical judgment, deems that a medical need exists for a medication without regard to previous use.
[2022-02-07] MEDS: LATANOPROST 0.005% OPHTH DROPS EACHEYE SCH (20:44)
[2022-02-08] MEDS: SODIUM CHLORIDE FLUSH 0.9% 10 ML SYRINGE IVP SCH (00:12)
[2022-02-08] MEDS: PIPERACILLIN/TAZOBACTAM 3.375 GM in SODIUM CHLORIDE 0.9% MINIBAG 100 ML IV SCH ×2 (00:12→06:12)
[2022-02-08] MEDS: METOCLOPRAMIDE 10 MG/2 ML VIAL IVP PRN ×2 (00:12→06:12)
[2022-02-08] MEDS: SODIUM CHLORIDE 0.9% 1,000 ML IV SCH (04:35)
[2022-02-08] MEDS: PANTOPRAZOLE 40 MG VIAL IVP SCH (06:12)
[2022-02-08] MEDS: predniSONE 5 MG TABLET PO SCH (07:41)
[2022-02-08] MEDS: TIMOLOL 0.5% OPHTH DROPS EACHEYE SCH (07:41)
[2022-02-08] MEDS: ENOXAPARIN 40 MG/0.4 ML SYRINGE SUBQ SCH (07:41)
[2022-02-08 07:44] VITALS: BP 145/72
[2022-02-08 09:00] LABS: ALBUMIN 3.2 g/dL (3.2-5.5); ALBUMIN/GLOBULIN RATIO 0.9 (1.0-2.2); BILIRUBIN,TOTAL 0.9 mg/dL (0.2-1.0); POTASSIUM 3.4 mmol/L (3.5-5.0); TOTAL PROTEIN 6.8 g/dL (6.7-8.2)
--- NOTE | 2022-02-08 09:17 | Discharge Plan ---
Discharge Plan Problem Reviewed?: Yes Disposition: Home, Self Care Condition: Good Prescriptions: Amox/Clav 875/125 [Augmentin 875/125 Tab] 1 tablet PO Q12H 5 Days #10 tablet Diet: Regular Activity Restrictions: No Restrictions Shower Restrictions: No Driving Restrictions: No Health Concerns: history ercp and stent placement. stent due to be removed Assessment: doing well after iv antibiotics and iv fluids Additional Instructions or Follow Up instructions: call the surgery office with any concerns [phone] No Smoking: If you smoke, Please STOP! Call for help. Follow-up with: JAMIE SOSA DO [Primary Care Provider] -
[2022-02-08 10:22] LABS: BASOPHILS % (AUTO) 0.4 %; EOSINOPHILS % (AUTO) 0.4 %; HCT - HEMATOCRIT 38.9 % (42.0-52.0); HGB - HEMOGLOBIN 12.8 g/dL (14.0-18.0); LYMPHOCYTES # (AUTO) 1.9 10^3/uL (1.5-3.5); LYMPHOCYTES % (AUTO) 24.8 %; MEAN CORPUSCULAR HEMOGLOBIN 30.9 pg (27.0-31.0); MEAN CORPUSCULAR HGB CONC 32.9 g/dL (32.0-36.0); MEAN PLATELET VOLUME 9.9 fL (7.4-11.4); MONOCYTES # (AUTO) 0.9 10^3/uL (0.0-1.0); MONOCYTES % (AUTO) 11.3 %; NEUTROPHILS # (AUTO) 4.8 10^3/uL (1.5-6.6); NEUTROPHILS % (AUTO) 62.7 %; PLT - PLATELET COUNT 249 10^3/uL (130-450); RED BLOOD COUNT 4.14 10^6/uL (4.70-6.10); RED CELL DISTRIBUTION WIDTH 13.1 % (12.0-15.0); WHITE BLOOD COUNT 7.7 x10^3/uL (4.8-10.8)
--- NOTE | 2022-02-08 15:43 | DISCHARGE SUMMARY ---
"Discharge Summary Admit Date: 02/05/22 Discharge Date: 02/08/22 Discharging Provider: gris roper Code Status: Attempt Resuscitation Condition at Discharge: Good Discharge Disposition: 01 Home, Self Care Discharge Facility Name: [facility] - DIAGNOSES Admission Diagnoses: abdominal pain, nausea and vomiting Discharge Diagnoses with Status of Each Condition: biliary infection/ resolved home in good condition - HPI History of Present Illness: history ercp and stent placement 2 months ago and cholecystectomy 1 month ago. acute onset abdominal pain with nausea and vomiting just prior to admission. much improved with iv antibiotics. stent still in place and due to be removed. ct scan report concerning for liver bed abscess. finding is not abscess. surgicell was placed at surgery and has not dissolved yet. - CONSULTS | PROCEDURES Procedures: bowel rest, ivf, iv antibiotics - HOSPITAL COURSE Hospital Course: quickly improved. some diarrhea. c diff ordered and result pending - ALLERGIES Allergies/Adverse Reactions: Allergies Allergy/AdvReac Type Severity Reaction Status Date / Time No Known Drug Allergies Allergy Verified 02/05/22 20:06 - MEDICATIONS Home Medications: Ambulatory Orders Medication Instructions Recorded Confirmed Ascorbic Acid [Vitamin C] 1,000 mg PO DAILY 01/04/22 02/07/22 Cholecalciferol [Vitamin D3] 25 mcg PO DAILY 01/04/22 02/07/22 Latanoprost/Pf [Latanoprost 0.005% 1 drops OP DAILY 01/04/22 02/07/22 Eye Drop] Timolol 0.5% Ophth Drops [Timoptic 1 drops OPTH BID 01/04/22 02/07/22 0.5% Ophth Drops] Vitamin B Complex 1 each PO DAILY 01/04/22 02/07/22 predniSONE [Deltasone] 5 mg PO DAILY 01/04/22 02/07/22 HYDROcod/ACETAM 5/325 [[place] 5/325] 1 each PO Q6H PRN #30 tablet 01/09/22 02/07/22 Amox/Clav 875/125 [Augmentin 1 tablet PO Q12H 5 Days #10 tablet 02/08/22 875/125 Tab] - PHYSICAL EXAM AT DISCHARGE General Appearance: positive: No acute distress, Alert Eyes Bilateral: positive: PERRL, No scleral icterus ENT: positive: No signs of dehydration Neck: positive: No JVD, Trachea midline Respiratory: positive: No respiratory distress Abdomen: positive: Non-tender, No distention Neurologic/Psychiatric: positive: Oriented x3 - LABS Result Diagrams: 02/08/22 05:01 02/08/22 05:01 - DIAGNOSTIC IMAGING Diagnostic Imaging Results: Read independently (surgicell present in gallbladder bed. no abscess) - FOLLOW UP Follow Up: surgery as needed [phone] he has contacted his lime filter operator for stent removal"
== END 2022-02-08 10:52 | disposition home or self-care (01) | DRG 434 ==
LOC: ED 19:57 → MS3 02-06 09:19
PROVIDERS: ADMIT Surgery; ATTEND Surgery
DX: K74.3 Primary biliary cirrhosis (principal); M35.3 Polymyalgia rheumatica; Z96.89 Presence of other specified functional implants; G47.30 Sleep apnea, unspecified; K21.9 Gastro-esophageal reflux disease without esophagitis; M06.9 Rheumatoid arthritis, unspecified; Z90.49 Acquired absence of other specified parts of digestive tract; Z20.822 Contact with and (suspected) exposure to COVID-19
CPT/HCPCS: 36415; 74176; 76705; 80053; 83690; 85025; 85610; 87040; 87493; 87633; 96361; 96365; 96366; 96375; 96376; 99283; 99285; A9270; J1650; J2765; J7512